=== PATIENT | female | born 1985 | race Hispanic/Latino ===

== ENCOUNTER → 2018-12-25 | Outpatient (CLI) | payer OTHER ==
--- NOTE | 2018-12-25 14:27 | Diagnostic Imaging Report ---
EXAM: Right upper quadrant abdominal ultrasound INDICATION: Right upper quadrant pain COMPARISON: None. TECHNIQUE: Transverse and longitudinal images of the right upper quadrant abdomen were obtained FINDINGS: Liver: Size: 13.1 cm in the right midclavicular line, normal Appearance: Normal echogenicity, smooth contour Mass: Focal hyperechoic 1.8 x 1.3 x 1.3 cm area in the right liver without associated vascularity likely represents focal fatty infiltration. Gallbladder: No gallbladder distension, pericholecystic fluid, wall thickening, stone, or reported sonographic Willis's sign. Gallbladder wall measures 2 mm. Bile Ducts: Intrahepatic Ducts: No dilatation Extrahepatic Ducts: Common bile duct measures 2 mm Pancreas: Visualized portions of the pancreatic head, neck and proximal body are normal. Kidney: The right kidney measures 11.2 cm without evidence of hydronephrosis or stone. Vessels: Aorta: Visualized portions are normal Inferior Vena Cava: Visualized portions are normal Main Portal Vein: 0.8 cm, normal size with hepatopetal flow. Free Fluid: No ascites or pleural effusion IMPRESSION: No cholelithiasis or sonographic evidence of cholecystitis. Vague 1.8 x 1.3 x 1.3 cm hyperechoic area in the right liver likely represents focal fat. Signed by: Parth Jackson MD on 12/25/2018 2:24 PM
== END ==
LOC: US 10:50
PROVIDERS: ATTEND Family Medicine
DX: K83.9 Disease of biliary tract, unspecified (principal)
CPT/HCPCS: 76705